=== PATIENT | female | born 1940 | race Caucasian/White ===

== ENCOUNTER 2022-10-16 16:23 | Outpatient (CLI) | payer MEDICARE, MEDICAID, SELFPAY ==
--- NOTE | ~2022-10-16 | CT_ITS ---
EXAMINATION: CT abdomen pelvis wo con DATE: 10/16/2022 17:22 INDICATION: Epigastric abdominal pain. TECHNIQUE: Computed tomography (CT) of the abdomen and pelvis was performed without intravenous contr ast. Automated exposure control and iterative reconstruction technique were employed. The dose-length product was 443.57 mGy-cm. COMPARISON: None. FINDINGS: The visualized portions of the lung bases demonstrate emphysema and mild atelectasis. No pl eural effusion. The heart size is normal. There are coronary artery calcifications. No pericardial ef fusion. The liver, gallbladder, spleen, pancreas, adrenal glands, and kidneys are normal. There is no urolithiasis. There is calcified atherosclerosis of the aorta and many of the other arteries. There is diverticulosis of the colon without evidence of diverticulitis. The appendix is not visualized. Th ere are no pathologically enlarged lymph nodes. There is no free intraperitoneal fluid. There is inte rnal fixation of proximal right femur. There is moderate lumbar spondylosis. There is moderate thorac ic spondylosis. IMPRESSION: 1. No etiology for the patient's symptoms. Reviewed, dictated and finalized at location E.
--- NOTE | ~2022-10-16 | XR_ITS ---
EXAMINATION: XR lumbar spine 2-3V DATE: 10/16/2022 17:22 INDICATION: Right-sided low back pain. TECHNIQUE: 3 views of lumbar spine were obtained. COMPARISON: None. FINDINGS: There is 5 degrees dextrocurvature of thoracolumbar spine. There is 3 mm anterolisthesis of L3 on L4 and L5 on S1. Vertebral body heights are normal. There is moderately decreased disc height at L5-S1. 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 IMPRESSION: 1. Moderate lower lumbar spondylosis. Reviewed, dictated and finalized at location E.
[2022-10-16 16:56] LABS: Estimated Glomerular Filt Rate 23
== END 2022-10-16 16:24 | disposition home or self-care (01) ==
LOC: CHSLAB 16:34
PROVIDERS: PCP Family Medicine
DX: R10.13 Epigastric pain (principal); M54.50 Low back pain, unspecified; M43.06 Spondylolysis, lumbar region
CPT/HCPCS: 72100; 74176

== ENCOUNTER 2022-12-11 09:31 | Outpatient (CLI) | payer MEDICARE, MEDICAID, SELFPAY ==
--- NOTE | ~2022-12-11 | MR_ITS ---
MRI of the lumbar spine Clinical History: Radiculopathy Technique: Axial T2-weighted images, and sagittal T1-weighted, T2-weighted, and T2 fat-sat images wer e acquired. Findings: There is no fracture or sublocation of the lumbar spine. Vertebral bodies maintain normal h eight and alignment. No bone marrow signal abnormality seen. At L1-L2, there is minimal disc bulge and minimal facet arthropathy. No central canal stenosis. There is moderate left neural foraminal narrowing. Right neural foramen preserved. At L2-L3, there is minimal disc bulge and mild facet arthropathy. No central canal stenosis or neural foraminal narrowing. At L3-L4, there is diffuse disc bulge and moderate to advanced facet arthropathy. There is mild centr al canal stenosis. There is moderate to advanced right neural foraminal narrowing. Left neural forame n preserved. At L4-L5, there is disc bulge and moderate facet arthropathy. No central canal stenosis. There is mil d right neural foraminal narrowing. At L5-S1, there is diffuse disc bulge with advanced facet arthropathy. No central canal stenosis. The re is moderate to severe bilateral neural foraminal narrowing. Paravertebral soft tissues are unremarkable. Impression: Moderate degenerative spondylosis, as above, especially at L3-L4 and L5-S1. Reviewed, dictated and finalized at [facility]. Impression: Moderate degenerative spondylosis, as above, especially at L3-L4 and L5-S1.
== END 2022-12-11 09:32 | disposition home or self-care (01) ==
LOC: CHSIMG 09:32
PROVIDERS: PCP Family Medicine
DX: M54.16 Radiculopathy, lumbar region (principal); M43.06 Spondylolysis, lumbar region
CPT/HCPCS: 72148